=== PATIENT | female | born 1970 | race Caucasian/White ===

== ENCOUNTER 2020-11-21 09:41 | Outpatient (CLI) | payer BC, SELFPAY ==
[2020-11-21 09:52] LABS: Hematocrit 40.7 % (35.0-49.0); Mean Corpuscular HGB Conc 34.4 g/dL (32.0-36.0); Mean Corpuscular Hemoglobin 30.6 pg (27.0-31.0); Mean Corpuscular Volume 89.1 fL (78.0-102.0); Mean Platelet Volume 9.3 fl (9.2-11.8); Platelet Count Result 267 K/mm3 (150-420); Red Blood Count 4.57 M/mm3 (4.20-5.40); Red Cell Distribution Width 12.1 % (11.6-14.4); White Blood Count 6.2 K/mm3 (4.8-10.8)
[2020-11-21 11:20] LABS: Alanine Aminotransferase 48 U/L (14-59); Albumin Level 4.2 g/dL (3.4-5.0); Alkaline Phosphatase 104 U/L (46-116); Anion Gap 17 mmol/L (8-16); Aspartate Amino Transferase 28 U/L (15-37); Bilirubin,Total 0.6 mg/dL (0.00-1.00); Blood Urea Nitrogen 14 mg/dL (7-18); Calcium 9.3 mg/dL (8.5-10.1); Carbon Dioxide 25 mmol/L (21-32); Chloride 102 mmol/L (98-108); Cholesterol 341 mg/dL (0-200); Estimated Glomerular Filt Rate > 60; Glucose 100 mg/dL (70-99); HDL Direct 55 mg/dL (40-60); Osmolality Calculated 298 mOsm/kg (285-295); Potassium 4.7 mmol/L (3.5-5.1); Sodium 144 mmol/L (136-145); Total Protein 7.9 g/dL (6.4-8.2)
[2020-11-21 11:31] LABS: LDL Cholesterol Calculated 188 mg/dL (<130); Triglycerides 489 mg/dL (0-150)
[2020-11-21 11:32] LABS: LDL Cholesterol Direct 197 mg/dL (0-130)
== END 2020-11-21 09:42 | disposition home or self-care (01) ==
LOC: CHSLAB 09:45
PROVIDERS: PCP Family Medicine; Visit Provider Family Medicine
DX: I10 Essential (primary) hypertension (principal)
CPT/HCPCS: 36415; 80053; 80061; 83721; 85027

== ENCOUNTER 2020-11-24 13:35 | Outpatient (CLI) | payer BC, SELFPAY ==
--- NOTE | ~2020-11-24 | MM_ITS ---
EXAMINATION: MM screening narcisa BI w millicent HISTORY: Screening mammogram TECHNIQUE: Craniocaudal and mediolateral oblique 3-D tomosynthesis images were obtained and synthetic 2-D images were generated. CAD analysis was submitted and interpreted. COMPARISON: No prior mammogram is available for comparison at this institution. BREAST PARENCHYMAL COMPOSITION: The breasts are heterogeneously dense, which may obscure small masses . FINDINGS: RIGHT BREAST: There is no evidence of suspicious mass, calcification, or architectural distortion to suggest malignancy. LEFT BREAST: An asymmetry is present in the anterior third of the upper breast 3 cm from the nipple o n the mediolateral oblique view. IMPRESSION: 1. Left breast asymmetry. 2. Additional mammographic views and possible breast ultrasound are recommended. BI-RADS Category 0: Incomplete: Needs additional imaging evaluation. Reviewed, dictated and finalized at location A. IMPRESSION: 1. Left breast asymmetry. 2. Additional mammographic views and possible breast ultrasound are recommended . BI-RADS Category 0: Incomplete: Needs additional imaging evaluation.
== END 2020-11-24 13:36 | disposition home or self-care (01) ==
PROVIDERS: PCP Family Medicine; Visit Provider Family Medicine
DX: Z12.31 Encounter for screening mammogram for malignant neoplasm of breast (principal); Z12.4 Encounter for screening for malignant neoplasm of cervix
CPT/HCPCS: 77063; 77067; 88175; G0145

== ENCOUNTER 2020-12-15 09:58 | Outpatient (CLI) | payer BC, SELFPAY ==
--- NOTE | ~2020-12-15 | MM_ITS ---
EXAMINATION: MM diagnostic mammo unilat LT HISTORY: Left breast asymmetry reported on 12/04/2020 screening MLO view TECHNIQUE: Additional 3-D tomosynthesis images of the left breast were performed and synthetic 2-D im ages were generated. CAD analysis was submitted and interpreted. COMPARISON: 11/24/2020 bilateral digital screening mammogram FINDINGS: No suspicious reproducible mass or architectural distortion, skin thickening or retraction is detected. IMPRESSION: 1. No mammographic evidence of malignancy 2. Routine mammographic screening is recommended. BI-RADS Category 1: Negative Reviewed, dictated and finalized at location A.
== END 2020-12-15 09:59 | disposition home or self-care (01) ==
LOC: CHSIMG 09:59
PROVIDERS: PCP Family Medicine; Visit Provider Family Medicine
DX: R92.8 Other abnormal and inconclusive findings on diagnostic imaging of breast (principal)
CPT/HCPCS: 77065

== ENCOUNTER 2021-01-29 12:49 | Emergency (ER) | payer BC, SELFPAY ==
--- NOTE | ~2021-01-29 | XR_ITS ---
EXAMINATION: XR chest 2V DATE: 01/29/2021 13:17 INDICATION: Chest pain TECHNIQUE: PA and lateral views of the chest are obtained. COMPARISON: None available FINDINGS: The lungs are free of acute opacities. There is no pleural effusion or pneumothorax. The ca rdiomediastinal silhouette is normal. The visualized bones and soft tissues are unremarkable. IMPRESSION: 1. No acute cardiopulmonary abnormality. Reviewed, dictated and finalized at location A.
--- NOTE | 2021-01-29 12:52 | ECG_ITS ---
Measurements Intervals [place] Rate: 82 P: 65 DC: 141 QRS: 71 QRSD: 82 T: 68 QT: 353 QTc: 414 Interpretive Statements SINUS RHYTHM NORMAL ECG Electronically Signed On 01-29-2021 13:32:38 CDT by Luis Roa D.O.
[2021-01-29 12:55] VITALS: BP 167/94; PULSE 86; RESP 20; TEMP 36.6; O2SAT 96
[2021-01-29 13:28] LABS: Basophils Absolute Auto 0.04 K/mm3 (0.00-0.10); Basophils Percent Auto 0.6 % (0.0-1.0); Eosinophils Absolute Auto 0.14 K/mm3 (0.02-0.50); Eosinophils Percent Auto 2.2 % (1.0-6.0); Hemoglobin 12.6 g/dL (12.0-15.0); Immature Granulocyte Absolute 0.03 K/mm3 (0.00-0.00); Immature Granulocyte Percent A 0.5 % (0.0-0.0); Lymphocytes Absolute Auto 1.65 K/mm3 (1.10-4.50); Lymphocytes Percent Auto 25.8 % (18.0-42.0); Mean Corpuscular HGB Conc 34.1 g/dL (32.0-36.0); Mean Corpuscular Volume 91.1 fL (78.0-102.0); Mean Platelet Volume 9.6 fl (9.2-11.8); Monocytes Absolute Auto 0.64 K/mm3 (0.10-0.90); Neutrophils Absolute Auto 3.9 K/mm3 (1.7-7.2); Neutrophils Percent Auto 60.9 % (50.0-70.0); Platelet Count Result 232 K/mm3 (150-420); Red Blood Count 4.06 M/mm3 (4.20-5.40); Red Cell Distribution Width 12.4 % (11.6-14.4); White Blood Count 6.4 K/mm3 (4.8-10.8)
[2021-01-29 13:30] VITALS: BP 160/78; PULSE 80; RESP 18; O2SAT 98
[2021-01-29] MEDS: KETOROLAC 30 MG/ML VIAL (*BKC) IV PUSH (13:36)
[2021-01-29 13:42] LABS: D Dimer 0.19 mg/L (0.19-0.50); Partial Thromboplastin Time 25.4 SEC (23.90-30.70); Prothrombin Time 10.9 Seconds (9.50-12.10)
[2021-01-29 13:48] LABS: Alanine Aminotransferase 42 U/L (14-59); Albumin Level 3.5 g/dL (3.4-5.0); Alkaline Phosphatase 115 U/L (46-116); Anion Gap 14 mmol/L (8-16); Aspartate Amino Transferase 24 U/L (15-37); Bilirubin,Total 0.3 mg/dL (0.00-1.00); Blood Urea Nitrogen 13 mg/dL (7-18); Calcium 8.7 mg/dL (8.5-10.1); Carbon Dioxide 27 mmol/L (21-32); Chloride 102 mmol/L (98-108); Estimated CRCL calculation 61 ml/min; Estimated Glomerular Filt Rate > 60; Glucose 143 mg/dL (70-99); Lipase 103 U/L (73-393); NT Pro B Type Natriuretic Pept 97 pg/mL (0-125); Osmolality Calculated 298 mOsm/kg (285-295); Potassium 3.9 mmol/L (3.5-5.1); Sodium 143 mmol/L (136-145); Total Protein 7.1 g/dL (6.4-8.2)
[2021-01-29 13:50] LABS: Troponin I < 4.0 ng/L (0.00-60.4)
--- NOTE | 2021-01-29 14:06 | ED.CHESTPAIN ---
HPI - Chest Pain General Chief Complaint: Chest Pain Stated Complaint: chest pain Time Seen by Provider: 01/29/21 12:52 Source: patient Mode of arrival: ambulatory History of Present Illness HPI narrative: this is a 50-year-old female that recently contacted her primary care physician and was having chest discomfort with pressure radiation into her left arm with no diaphoresis no no nausea or vomiting no shortness of breath. Patient nonsmoker no history of heart disease, patient's discomfort started to her 3 days ago and has been off and on. Pain is reproducible with palpation. MD complaint: chest pain Onset (ago): day(s) Timing of current episode: episodic Prior episodes: Yes Onset: during rest and during exertion Pain location: parasternal ( reproducible with palpation) Pain radiation: left arm Severity: moderate Pain scale (0-10): 5 Quality: aching and heaviness Exacerbating factors: exertion Related Data Home Medications Medication Instructions Recorded Confirmed omeprazole 20 mg capsule,delayed 20 mg PO DAILY 11/21/20 01/29/21 release Allergies Allergy/AdvReac Type Severity Reaction Status Date / Time ciprofloxacin [From Cipro] Allergy Severe Eye Verified 01/29/21 09:06 swelling Review of Systems Review of Systems: All systems reviewed & are unremarkable except as noted in HPI and below PMFSH Past Medical History Medical History GERD (gastroesophageal reflux disease) Surgical History Surgical History History of microdiscectomy May 2018 Family History Family History Father Lung cancer Hypertension Mother Diabetes mellitus Depression Hypertension Social History Social History Smoking status: Never smoker Alcohol intake: current Alcohol use details: social Substance use: current Additional living arrangements comments: Fiance 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 Exam Const: General: no acute distress and alert Orientation/consciousness: patient oriented x3 HENMT: Head: normal to inspection Eyes: Conjunctivae: conjunctivae normal Pupils: Equal, round and reactive pupils present Neck: Neck: normal visual inspection, no lymphadenopathy and no meningeal signs Chest: Chest palpation & inspection: normal inspection of the chest Resp: Effort & Inspection: normal respiratory effort Cardio: Rate: regular rate Rhythm: regular rhythm GI: GI Palp: Yes Soft to palpation : General: Yes no CVA tenderness Back/Spine/Pelvis: Back: no CVA tenderness Skin: General skin exam: normal color Rashes: no rashes Neuro: General: patient oriented x3 Extrem: General: normal to inspection and no pedal edema Psych: Appearance: grossly normal Mental Status: mental status grossly normal Affect: normal affect Course Course Emergency Course: Reassessment of patient doing better pain is mostly relieved in her chest after IM Toradol, patient states that she has a headache and will give a g of Tylenol. Labs and x-rays reviewed with patient along with EKG advised follow-up with primary care physician. Vital Signs Vital signs: Vital Signs Temperature 36.6 C 01/29/21 12:55 Pulse Rate 86 01/29/21 12:55 Respiratory Rate 20 01/29/21 12:55 Blood Pressure 167/94 H 01/29/21 12:55 Pulse Oximetry 96 01/29/21 12:55 Temperature 36.6 C 01/29/21 12:55 Pulse Rate 80 01/29/21 13:30 Respiratory Rate 18 01/29/21 13:30 Blood Pressure 160/78 H 01/29/21 13:30 Pulse Oximetry 98 01/29/21 13:30 MDM - Chest Pain Lab Data Result diagrams: 01/29/21 13:06 01/29/21 13:06 Labs: Lab Results 01/29/21 01/29/21 01/29/21 Range/Units 13:06 13:06 13:06
[2021-01-29] MEDS: ACETAMINOPHEN 500 MG TABLET 1000 MG PO (14:08)
[2021-01-29 14:16] VITALS: BP 154/71; PULSE 87; RESP 18; TEMP 36.3; O2SAT 98
== END 2021-01-29 14:22 | disposition home or self-care (01) ==
PROVIDERS: Emergency Provider Emergency Medicine; PCP Family Medicine
DX: R07.89 Other chest pain (principal); M94.0 Chondrocostal junction syndrome [Tietze]
CPT/HCPCS: 36415; 71046; 80053; 83690; 83880; 84484; 85025; 85380; 85610; 85730; 93005; 96374; 99283; 99284; J1885

== ENCOUNTER 2021-01-30 09:11 | Outpatient (CLI) | payer BC, SELFPAY ==
[2021-01-30 10:40] LABS: SARS-CoV-2 RNA PCR Negative (Negative)
== END 2021-01-30 09:12 | disposition home or self-care (01) ==
LOC: CHSLAB 09:13
PROVIDERS: PCP Family Medicine; Visit Provider Family Medicine
DX: J02.9 Acute pharyngitis, unspecified (principal); Z20.822 Contact with and (suspected) exposure to COVID-19
CPT/HCPCS: C9803; U0003; U0005

== ENCOUNTER 2021-01-31 09:43 | Outpatient (CLI) | payer BC, SELFPAY ==
[2021-01-31] MEDS: PROCHLORPERAZINE EDISYLATE 10 MG/2 ML VIAL IV PUSH (10:06)
[2021-01-31] MEDS: diphenhydrAMINE HCl INJ 50 MG/ML VIAL IV PUSH (10:06)
[2021-01-31] MEDS: SODIUM CHLORIDE 0.9% IV 1,000 ML 1000 ML IVPB (10:07)
[2021-01-31 10:11] VITALS: BP 154/85; PULSE 64; RESP 14; TEMP 36.7; O2SAT 98; BMI 27.8
--- NOTE | 2021-01-31 15:00 | PC.NURSE ---
[address] Celestin's office for IV fluids and IV bendaryl and IV compazine for a migraine. Education on meds given. No concerns voiced. IV fluids and IV meds administered. SEE MAR. Tolerated well. Reports headache is almost gone. Safe exit of hospital..
== END 2021-01-31 09:44 | disposition home or self-care (01) ==
LOC: CHSTREATRM 09:46
PROVIDERS: PCP Family Medicine; Visit Provider Family Medicine
DX: G43.909 Migraine, unspecified, not intractable, without status migrainosus (principal)
CPT/HCPCS: 96360; 96361; 96374; 96375; J0780; J1200

== ENCOUNTER 2021-05-21 13:18 | Outpatient (CLI) | payer BC, SELFPAY ==
[2021-05-21 15:14] LABS: SARS-CoV-2 RNA PCR Negative (Negative)
== END 2021-05-21 13:19 | disposition home or self-care (01) ==
LOC: CHSLAB 13:21
PROVIDERS: PCP Family Medicine; Visit Provider Family Medicine
DX: Z20.822 Contact with and (suspected) exposure to COVID-19 (principal)
CPT/HCPCS: C9803; U0003; U0005

== ENCOUNTER 2021-07-16 14:35 | Outpatient (CLI) | payer BC, SELFPAY ==
[2021-07-16 14:48] LABS: Hematocrit 38.8 % (35.0-49.0); Mean Corpuscular HGB Conc 33.5 g/dL (32.0-36.0); Mean Corpuscular Hemoglobin 30.1 pg (27.0-31.0); Mean Corpuscular Volume 89.8 fL (78.0-102.0); Mean Platelet Volume 9.3 fl (9.2-11.8); Platelet Count Result 250 K/mm3 (150-420); Red Blood Count 4.32 M/mm3 (4.20-5.40); Red Cell Distribution Width 12.3 % (11.6-14.4)
[2021-07-16 16:01] LABS: Alanine Aminotransferase 79 U/L (14-59); Albumin Level 3.8 g/dL (3.4-5.0); Alkaline Phosphatase 133 U/L (46-116); Anion Gap 13 mmol/L (8-16); Aspartate Amino Transferase 31 U/L (15-37); Bilirubin,Total 0.3 mg/dL (0.00-1.00); Blood Urea Nitrogen 13 mg/dL (7-18); Calcium 9.1 mg/dL (8.5-10.1); Carbon Dioxide 26 mmol/L (21-32); Chloride 101 mmol/L (98-108); Estimated Glomerular Filt Rate > 60; Folic Acid 14.6 ng/mL (8.6->20); Glucose 111 mg/dL (70-99); Osmolality Calculated 291 mOsm/kg (285-295); Potassium 4.4 mmol/L (3.5-5.1); Sodium 140 mmol/L (136-145); Total Protein 7.4 g/dL (6.4-8.2); Vitamin B12 206 pg/mL (193-986)
[2021-07-16 16:21] LABS: Thyroid Stimulating Hormone Reflex 1.92 u/IU/mL (0.36-3.74)
== END 2021-07-16 14:36 | disposition home or self-care (01) ==
LOC: CHSLAB 14:37
PROVIDERS: PCP Family Medicine; Visit Provider Family Medicine
DX: E11.9 Type 2 diabetes mellitus without complications (principal); U09.9 Post COVID-19 condition, unspecified; E53.8 Deficiency of other specified B group vitamins
CPT/HCPCS: 36415; 80053; 82607; 82746; 84443; 85027

== ENCOUNTER 2022-04-10 14:18 | Emergency (ER) | payer BC, SELFPAY ==
[2022-04-10 14:20] VITALS: BP 170/84; PULSE 100; RESP 16; TEMP 37.8; O2SAT 98
--- NOTE | 2022-04-10 14:22 | ED.URI ---
HPI - URI/Sore Throat General Chief Complaint: Upper Respiratory Infection Stated Complaint: Fever/SOB/Cough Time Seen by Provider: 04/10/22 14:22 Source: patient Mode of arrival: ambulatory History of Present Illness HPI Narrative: 1-year-old female with a history of hypertension, GERD, MDD presents to the ER with a 3 day history of -- fever -- cough-non productive -- migraine- bilateral headache with photophobia. this is similar to her usual headaches. -- chest congestion -- vomiting yesterday . none today. MD elicited complaint: fever, cough and sore throat Onset (ago): day(s) ( Symptoms started 3 days ago) Consistency: constant Severity: moderate Able to tolerate fluids by mouth: Yes Exacerbating factors: nothing Relieving factors: nothing Associated symptoms: denies other symptoms, headache, cough, nausea, vomiting and diarrhea Treatments prior to arrival: none Related Data Allergies Allergy/AdvReac Type Severity Reaction Status Date / Time ciprofloxacin [From Cipro] Allergy Severe Eye Verified 04/10/22 14:29 swelling Review of Systems Review of Systems: All systems reviewed & are unremarkable except as noted in HPI and below Constitutional: Constitutional: Reports as per HPI and Reports no additional constitutional complaints Eyes: Eyes: Reports as per HPI and Reports no additional eye complaints ENT: Reports system reviewed and no additional complaints, except as documented, Reports as per HPI, Reports nasal congestion and Reports sore throat Cardiovascular: Cardiovascular: Reports as per HPI and Reports no additional cardiovascular complaints Respiratory: Respiratory: Reports as per HPI, Reports no additional respiratory complaints and Reports cough Gastrointestinal: Gastrointestinal: Reports as per HPI, Reports no additional gastrointestinal complaints, Reports diarrhea, Reports nausea and Reports vomiting Genitourinary: Genitourinary: Reports no additional female genitourinary complaints and Reports as per HPI Musculoskeletal: Musculoskeletal: Reports no additional musculoskeletal complaints and Reports as per HPI Integumentary/Breasts: Skin/Breast: Reports system reviewed and no additional complaints, except as docu and Reports as per HPI Neurologic: Reports system reviewed and no additional complaints, except as documented and Reports as per HPI Psychiatric: Psychiatric: Reports no additional psychiatric complaints and Reports as per HPI Endocrine: Endocrine: Reports no additional endocrine complaints and Reports as per HPI Hematologic/Lymphatic: Hematologic/Lymphatic: Reports no additional hematologic/lymphatic complaints and Reports as per HPI Allergic/Immunologic: Allergic/Immunologic: Reports no additional allergic/immunologic complaints and Reports as per [facility] Past Medical History Medical History GERD (gastroesophageal reflux disease) Surgical History Surgical History History of microdiscectomy May 2018 Family History Family History Father Lung cancer Hypertension Mother Diabetes mellitus Depression Hypertension Social History Social History Alcohol intake: current Alcohol use details: social Substance use: current Additional living arrangements comments: Fiance 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
--- NOTE | 2022-04-10 14:56 | PC.NURSE ---
SPECIMENS OBTAINED, WATER PROVIDED. NAD NOTED. WILL CONTINUE TO MONITOR.
[2022-04-10 15:23] LABS: Strep Group A RT-PCR Not Detected (Negative)
[2022-04-10 15:35] LABS: SARS-CoV-2 RNA PCR Negative (Negative)
[2022-04-10 15:53] LABS: Influenza A QL RT-PCR Positive (Negative); Influenza B QL RT-PCR Negative (Negative)
[2022-04-10 16:03] LABS: RSV RNA, RT-PCR Negative (Negative)
[2022-04-10 16:15] VITALS: BP 151/89; PULSE 90; RESP 18; TEMP 36.6; O2SAT 97
== END 2022-04-10 16:15 | disposition home or self-care (01) ==
PROVIDERS: Emergency Provider Internal Medicine Critical Care Medicine; PCP Family Medicine
DX: J11.1 Influenza due to unidentified influenza virus with other respiratory manifestations (principal); Z20.822 Contact with and (suspected) exposure to COVID-19
CPT/HCPCS: 87502; 87634; 87651; 99282; U0003; U0005